=== PATIENT | female | born 1990 | race Caucasian/White ===

== ENCOUNTER 2022-10-08 12:04 | Outpatient (CLI) | payer OTHER ==
[2022-10-08 12:59] LABS: ESTIMATED AVERAGE GLUCOSE 111 mg/dL (70-100); HEMOGLOBIN A1c% 5.5 % (4.27-6.07)
[2022-10-08 13:01] LABS: THYROID STIMULATING HORMONE 2.33 uIU/mL (0.34-5.60)
[2022-10-08 13:05] LABS: FREE T4 (FREE THYROXINE) 0.85 ng/dL (0.58-1.64)
== END 2022-10-08 12:05 | disposition home or self-care (01) ==
LOC: LAB 12:04
PROVIDERS: ATTEND Nurse Practitioner
DX: R63.5 Abnormal weight gain (principal); Z13.1 Encounter for screening for diabetes mellitus
CPT/HCPCS: 36415; 83036; 84439; 84443